=== PATIENT | female | born 2000 | race Caucasian/White ===

== ENCOUNTER 2019-01-22 08:33 | Day surgery (SDC) | payer OTHER ==
[~2019-01-22] VITALS: Ht 172.7 cm; Wt 59.0 kg
[2019-01-22] VITALS (12 sets, daily range): BP systolic 108–133; BP diastolic 63–79
--- NOTE | 2019-01-22 08:54 | NUR ---
REPORT FROM CRISTY ANN.
[2019-01-22] MEDS ORDERED: SODIUM CHLORIDE FLUSH 10ML SYR IVF ONE (09:30)
[2019-01-22 09:43] LABS: % IRON SATURATION 3 % (20-55); ALBUMIN 3.4 g/dL (3.4-5.0); ANION GAP 8 mmol/L (5-15); CALCIUM 8.3 mg/dL (8.5-10.1); CHLORIDE 107 mmol/L (98-107); CREATININE 1.08 mg/dL (0.55-1.02); IRON LEVEL 15 mcg/dL (50-170); TOTAL IRON BINDING CAPACITY 590 mcg/dL (250-450)
[2019-01-22 09:53] LABS: MEAN CORPUSCULAR VOLUME 58.5 fL (80-100); MEAN PLATELET VOLUME 10.3 fL (7.4-10.4); PLATELET COUNT 363 x10^3/uL (130-400); RED BLOOD COUNT 3.41 x10^6/uL (3.82-5.3); RED CELL DISTRIBUTION WIDTH 20.8 % (9.6-15.2)
[2019-01-22 09:56] LABS: MD YES
[2019-01-22 09:58] LABS: ANISOCYTOSIS 1+; BAND#(MANUAL) 0.18 x10^3/uL; BANDS%(MANUAL) 4 % (0-7); EOS#(MANUAL) 0.04 x10^3/uL (0.0-0.8); EOS% (MANUAL) 1 % (1-7); HYPOCHROMIA 2+; LYMPH#(MANUAL) 0.79 x10^3/uL (1-6.1); LYMPHS% (MANUAL) 18 % (22-44); MICROCYTOSIS 2+; MONOS#(MANUAL) 0.18 x10^3/uL (0.3-2.7); MONOS% (MANUAL) 4 % (2-9); OVALOCYTES 1+; SEG#(MANUAL) 3.21 x10^3/uL (1.8-8); SEGS% (MANUAL) 73 % (42-75)
[2019-01-22 09:59] LABS: <PLATELET ESTIMATE> ADEQUATE; LARGE PLATELETS 1+; TEAR DROPS 1+
[2019-01-22 10:36] LABS: ALBUMIN 3.5 g/dL (3.4-5.0); BILIRUBIN, DIRECT 0.1 mg/dL (0.1-0.2); BILIRUBIN,INDIRECT 0.2 mg/dL (0.0-2.0); BILIRUBIN,TOTAL 0.3 mg/dL (0.2-1.0); TOTAL PROTEIN 6.8 g/dL (6.4-8.2)
--- NOTE | 2019-01-22 10:40 | NUR ---
PT EDUCATED ON BLOOD TRANSFUSION. ALL QUESTIONS ADDRESSED. BLOOD SLIP SENT TO BLOOD BANK. URINE COLLECTED AND SENT.
[2019-01-22 10:51] LABS: MICROSCOPIC NOT IND
[2019-01-22 10:52] LABS: CULTURE INDICATED? NO
--- NOTE | 2019-01-22 11:13 | NUR ---
BLOOD TRANSFUSING WITHOUT ISSUE. PT DENIES ANY S/S OR CONCERNS AT THIS TIME. CALL LIGHT IN REACH, FATHER AT BEDSIDE.
--- NOTE | 2019-01-22 12:50 | NUR ---
report to srikanth romo.
[2019-01-22] MEDS ORDERED: ACETAMINOPHEN 325 MG TABLET PO PRN (14:00)
[2019-01-22] MEDS ORDERED: LORATADINE 10 MG TABLET PO PRN (16:00)
[2019-01-22] MEDS ORDERED: ALBUTEROL/IPRATROPIUM 2.5MG/0.5MG, 3 ML IPPB PRN (16:00)
[2019-01-22] MEDS: FLUTICASONE NASAL SPRAY 16GM NAS SCH (22:06)
[2019-01-22] MEDS: BUDESONIDE 0.5 MG/2 ML INHA INH SCH (22:29)
[2019-01-23 02:05] VITALS: BP 113/70
[2019-01-23 05:28] LABS: MEAN CORPUSCULAR HEMOGLOBIN 19.8 pg (27.0-34.8); MEAN CORPUSCULAR HGB CONC 30.3 g/dL (32.4-35.8); MEAN CORPUSCULAR VOLUME 65.3 fL (80-100); MEAN PLATELET VOLUME 10.5 fL (7.4-10.4); PLATELET COUNT 329 x10^3/uL (130-400); RED BLOOD COUNT 4.37 x10^6/uL (3.82-5.3); RED CELL DISTRIBUTION WIDTH 27.1 % (9.6-15.2)
[2019-01-23 05:31] LABS: ANION GAP 5 mmol/L (5-15); CALCIUM 8.6 mg/dL (8.5-10.1); CHLORIDE 110 mmol/L (98-107)
[2019-01-23 05:51] LABS: MD YES
[2019-01-23 05:53] LABS: EOS#(MANUAL) 0.04 x10^3/uL (0.0-0.8); EOS% (MANUAL) 1 % (1-7); METAMYELOCYTES# (MANUAL) 0.04 x10^3/uL (0-0); METAMYELOCYTES% (MANUAL) 1 % (0-1); NRBC % (MANUAL) 1 % (0-1)
[2019-01-23 05:54] LABS: BAND#(MANUAL) 0.28 x10^3/uL; BANDS%(MANUAL) 7 % (0-7); LYMPH#(MANUAL) 1.68 x10^3/uL (1-6.1); LYMPHS% (MANUAL) 42 % (22-44); MONOS#(MANUAL) 0.24 x10^3/uL (0.3-2.7); MONOS% (MANUAL) 6 % (2-9); SEG#(MANUAL) 1.72 x10^3/uL (1.8-8); SEGS% (MANUAL) 43 % (42-75)
[2019-01-23 05:55] LABS: <PLATELET ESTIMATE> ADEQUATE; ANISOCYTOSIS 2+; HYPOCHROMIA 2+; MICROCYTOSIS 2+; OVALOCYTES 1+; TEAR DROPS 1+
[2019-01-23 05:56] LABS: LARGE PLATELETS 1+
[2019-01-23 07:41] VITALS: BP 114/75
[2019-01-23] MEDS: BUDESONIDE 0.5 MG/2 ML INHA INH SCH (07:48)
[2019-01-23] MEDS ORDERED: FERROUS SULFATE 325 MG TABLET PO SCH (08:00)
[2019-01-23] MEDS ORDERED: FERR-51 PO (09:33)
[2019-01-23] MEDS ORDERED: AZEL137S4 NAS (09:33)
[2019-01-23] MEDS: FLUTICASONE NASAL SPRAY 16GM NAS SCH (11:00)
[2019-01-23 12:59] VITALS: BP 116/74
== END 2019-01-23 14:20 | disposition home or self-care (01) ==
LOC: ED 09:11 → UNDOADMIN 12:06 → EDIP 12:06 → OUT 12:06 → EDIP 13:16 → 3N 13:16 → EDSTATUS 18:35 → DCLOUNGE 01-23 14:13 → 3N 01-23 14:13 → OUT 01-23 14:20 → UNDODISIN 01-23 14:23
PROVIDERS: ATTEND Emergency Medicine
DX: D50.9 Iron deficiency anemia, unspecified (principal); J18.1 Lobar pneumonia, unspecified organism; J45.909 Unspecified asthma, uncomplicated; Z79.01 Long term (current) use of anticoagulants; Z88.0 Allergy status to penicillin; Z88.1 Allergy status to other antibiotic agents; Z83.2 Family history of diseases of the blood and blood-forming organs and certain disorders involving the immune mechanism
CPT/HCPCS: 36415; 36430; 71045; 71046; 80048; 80076; 81003; 82040; 82274; 82728; 82784; 83516; 83540; 83550; 83605; 84145; 84703; 85014; 85018; 85025; 85730; 86850; 86900; 86923; 87040; 94640; 99285; J7626; P9016; G0378